=== PATIENT | female | born 2000 | race Caucasian/White ===

== ENCOUNTER 2020-01-03 12:01 | Emergency (ER) | payer SELFPAY ==
[2020-01-03 12:02] VITALS: BMI 33.3
[2020-01-03 12:06] VITALS: BP 132/73; PULSE 71; RESP 16; TEMP 37.1; O2SAT 98
--- NOTE | 2020-01-03 12:35 | US_ITS ---
WS: [id number] ULTRASOUND PELVIS TECHNIQUE: Transabdominal and transvaginal. ULTRASOUND PELVIS TECHNIQUE: Transabdominal. CLINICAL INFORMATION: pelvic pain, IUD in place : No. COMPARISON: None. FINDINGS: Technically difficult examination. Uterus IUD appears in place Orientation: Anteverted. Size: 8.57 cm x 5.4 cm x 4.7 cm. Masses: None. Endometrium: Normal. Adnexa: Suspected ruptured hemorrhagic cyst left ovary measuring 1.3 x 1.1 cm Right ovary size: 3.7 cm x 1.8 cm x 2.0 cm. Right ovary volume: 6.9 ccm3. Left ovary size: 5.0 cm x 5.1 cm x 2.0 cm. Left ovary volume: 26.5 ccm3 Free fluid: Present Other findings: None. US/US pelvic with transvaginal IMPRESSION: 1. Technically difficult examination. 2. Suspected ruptured hemorrhagic cyst left ovary measuring 1.3 x 1.1 cm 3. IUD appears to be in normal position. 4. Normal vascularity to both ovaries. 5. Free fluid about the right and left ovary, bladder, and in the cul-de-sac. 6. Complex fluid in the cul-de-sac suspicious for small amount of blood produc ts. 7. Normal endometrium.
[2020-01-03 12:43] VITALS: BP 174/100; PULSE 106; RESP 18; O2SAT 98
[2020-01-03 12:52] LABS: Basophils % 0.5 %; Eosinophils # 0.3 10^3/uL (0.0-0.8); Eosinophils % 3.9 %; Hematocrit 39.8 % (37.0-47.0); Hemoglobin 12.9 g/dL (11.5-15.3); Lymphocytes # 2.5 10^3/uL (1.5-6.5); Lymphocytes % 28.7 %; Mean Corpuscular HGB Conc 32.4 g/dL (30.0-36.0); Mean Corpuscular Hemoglobin 27.3 pg (28.0-34.0); Mean Corpuscular Volume 84.1 fL (81-99); Mean Platelet Volume 10.3 fL (7.4-10.4); Monocytes # 0.4 10^3/uL (0.2-0.9); Neutrophils # 5.32 10^3/uL (1.8-8.0); Neutrophils % 61.6 %; Nucleated Red Blood Cells % 0 %; Platelet Count 225 10^3/cmm (130-400); Red Blood Count 4.73 10^6/uL (4.1-5.3); Red Cell Distribution Width 13.5 % (12.1-15.1); White Blood Count 8.6 10^3/uL (4.5-13.0)
[2020-01-03 12:53] VITALS: RESP 17; O2SAT 100
[2020-01-03] MEDS: morphine 4 mg/mL SDV 1 mL IVP ×2 (12:53→14:21)
[2020-01-03] MEDS: ondansetron 2 mg/ML SDV 2 mL 4 MG IVP (12:53)
[2020-01-03] MEDS: ketorolac 30 mg/mL INJ 15 MG IVP (12:53)
[2020-01-03 13:01] LABS: Add Urine Microscopic? YES; Bilirubin Urine Neg (NEGATIVE); Blood Urine Neg (Negative); Glucose Urine UA Norm (Normal); Ketones Urine Negative (Negative); Leukocyte Esterase Urine Trace (Negative); Nitrate Urine Negative (Negative); Protein Urine Neg (Negative); Specific Gravity, Urine 1.005 (1.005-1.030); Urine Appearance Clear (CLEAR); Urine Color Straw (Yellow); Urobilinogen Urine Norm (Negative)
[2020-01-03 13:06] LABS: HCG, Serum Qual Negative (Negative)
[2020-01-03 13:07] LABS: Alanine Aminotransferase 16 U/L (0-33); Albumin Level 4.5 g/dL (3.5-5.2); Alkaline Phosphatase 70 IU/L (35-105); Anion Gap 12.6 (5-19); Aspartate Amino Transferase 19 U/L (0-32); Blood Urea Nitrogen 5 mg/dL (6-20); Calcium 8.9 mg/dL (8.5-10.5); Carbon Dioxide 24 mmol/L (22-29); Chloride 106 mmol/L (98-107); Globulin 2.3 g/dL (1.3-4.6); Glomerular Filtration Rate 106.7 mL/min (90-130); Glucose 96 mg/dL (65-115); Osmolality Calculated 284 mOsm/kg (285-295); Potassium 3.6 mmol/L (3.5-5.1); Sodium 139 mmol/L (136-145); Total Bilirubin 0.4 mg/dL (0.15-1.2); Total Protein 6.8 g/dL (6.6-8.7)
[2020-01-03 13:09] LABS: Bacteria Urine TRACE; Mucus Urine TRACE; Squamous Epithelial Cell Urine 0-4 (0-5); WBC Urine 0-4 /hpf (0-5)
[2020-01-03 13:10] LABS: Add Urine Culture? No
--- NOTE | 2020-01-03 13:50 | ED_ITS ---
HPI - Abdominal Pain General: Chief Complaint: Abdominal Pain Stated Complaint: ABD PAIN Time Seen by Provider: 01/03/20 12:17 History of Present Illness: HPI narrative: This is a 19 year old female presenting with abrupt onset of pelvic and abdominal pain at about 10 am. She had laid down in bed with her daughter who is sick with a fever - and started having severe pain that felt like labor. She was most comfortable on her hands and knees - worse with any movement. She has a merena IUD in place - has had it for a few years. She says that she has had two miscarriages with the merena in place. Otherwise she has not had a period in about a year. She doesn't have a doctor currently. She has noted tenderness in her breasts and some clear discharge from her nipples - she took several home tests that were neg. She has had 2 children and had complications with her first - pre- eclampsia and then afterwards had swelling in her uterus. No urinary symptoms, no diarrhea or vomiting, no vaginal discharge. MD elicited complaint: abdominal pain Pertinent past history: none Onset (ago): hour(s) (2) Radiation: suprapubic Associated Symptoms: Denies chills, fever(s), nausea and vomiting Review of Systems General: Reports: 10 or more systems reviewed and unremarkable except in HPI and below Const: Denies: fever(s), chills, fatigue or malaise Eyes: Denies: change in vision ENMT: Denies: odynophagia Card: Denies: chest pain or swelling of feet/ankles Resp: Denies: dyspnea, productive cough or non-productive cough GI: Reports: abdominal pain; Denies: nausea or vomiting : Denies: flank pain or difficulty voiding Musc: Denies: neck pain or back pain Skin/Breast: Reports: breast tenderness and nipple discharge; Denies: rash Neuro: Denies: headache(s), numbness in extremities or weakness in extremities Alexis/Lymph: Denies: easy bruising or easy bleeding [facility] ED PFSH: Social History (Updated 01/03/20 @ 12:07 by Nicole Perry RN) Smoking and tobacco status: never smoked Physical Exam Const: COMMON NORMALS: patient oriented x3, no limitations and alert GENERAL APPEARANCE: cooperative and in distress HENMT: HEAD & SCALP: normal to inspection FACE & SINUS: normal facial exam Eye: GENERAL EYE: appearance normal, both eyes and all related structures Neck/C-Spine: COMMON NORMALS: supple, no meningeal signs and no JVD Chest: COMMONS NORMALS: normal inspection of the chest Resp: COMMON NORMALS: normal respiratory effort, No use of accessory muscles and clear to auscultation bilaterally AUSCULTATION: clear to auscultation bilaterally Cardio: COMMON NORMALS: no JVD, regular rate, regular rhythm and No murmurs present (Cardio) RATE: regular rate RHYTHM: regular rhythm GI: COMMON NORMALS: Normal to inspection, nondistended, normoactive bowel sounds present, Soft to palpation and non-tender INSPECTION: Yes normal to inspection AUSCULTATION: Yes normoactive bowel sounds PALPATION: Yes Soft to palpation Back/Pelvis: COMMON NORMALS: thoracic and lumbar spine normal to inspection Extremity: COMMON NORMALS: normal to inspection Neuro: COMMON NORMALS: patient oriented x3, moves all extremities, no focal motor deficits and no sensory deficits noted SENSORIUM/ORIENTATION: Yes alert MENINGEAL SIGNS: Yes no meningeal signs Psych: COMMON NORMALS: mental status grossly normal, cooperative and normal affect Skin: COMMON NORMALS: no rashes or lesions noted and turgor normal GENERAL SKIN EXAM: no rashes or lesions noted and turgor normal Course ED course: Source of symptoms appears to be a hemorrhagic cyst. Patient also told me that she had just learned that someone she had sex with 4 months ago is rumored to have HIV and she would like to be tested. Also for hepatatis. She was given OB follow up and pain meds for home. Vital Signs: Vital signs: Vital Signs Temperature 98.7 F 01/03/20 12:06 Pulse Rate 68 01/03/20 15:25 Respiratory Rate 18 01/03/20 15:25 Blood Pressure 131/84 01/03/20 15:25 Pulse Oximetry 98 01/03/20 15:25 MDM - Abdominal Pain Lab Data: Labs: Lab Results 01/03/20 01/03/20 01/03/20 Range/Units 12:40 12:46 12:46 WBC 8.6 (4.5-13.0) 10^3/ uL RBC 4.73 (4.1-5.3) 10^6/u L Hgb 12.9 (11.5-15.3) g/dL Hct 39.8 (37.0-47.0) % MCV 84.1 (81-99) fL MCH 27.3 L (28.0-34.0) pg MCHC 32.4 (30.0-36.0) g/dL RDW 13.5 (12.1-15.1) % Plt Count 225 (130-400) 10^3/c mm MPV 10.3 (7.4-10.4) fL Neut % (Auto) 61.6 % Lymph % (Auto) 28.7 % [place] % (Auto) 5.0 % Eos % (Auto) 3.9 % Baso % (Auto) 0.5 % Neut # (Auto) 5.32 (1.8-8.0) 10^3/u L Lymph # (Auto) 2.5 (1.5-6.5) 10^3/u L [place] # (Auto) 0.4 (0.2-0.9) 10^3/u L Eos # (Auto) 0.3 (0.0-0.8) 10^3/u L Baso # (Auto) 0.0 (0.0-0.1) 10^3/u L Nucleated RBC % (a uto) 0 % Nucleated RBCs # 0.0 /100WBC Sodium 139 (136-145) mmol/L Potassium 3.6 (3.5-5.1) mmol/L Chloride 106 (98-107) mmol/L Carbon Dioxide 24 (22-29) mmol/L Anion Gap 12.6 (5-19) BUN 5 L (6-20) mg/dL Creatinine 0.7 (0.5-0.9) mg/dL GFR Calculation 106.7 (90-130) mL/min Glucose 96 (65-115) mg/dL Calculated Osmolal ity 284 L (285-295) mOsm/k g Calcium 8.9 (8.5-10.5) mg/dL Total Bilirubin 0.4 (0.15-1.2) mg/dL AST 19 (0-32) U/L ALT 16 (0-33) U/L Alkaline Phosphata se 70 (35-105) IU/L Total Protein 6.8 (6.6-8.7) g/dL Albumin 4.5 (3.5-5.2) g/dL Globulin 2.3 (1.3-4.6) g/dL HCG, Qual (Negative) Urine Color Straw (Yellow) Urine Appearance Clear (CLEAR) Urine pH 7.0 (5-7) Ur Specific Gravit y 1.005 (1.005-1.030) Urine Protein Neg (Negative) Urine Glucose (UA) Norm (Normal) Urine Ketones Negative (Negative) Urine Blood Neg (Negative) Urine Nitrate Negative (Negative) Urine Bilirubin Neg (NEGATIVE) Urine Urobilinogen Norm (Negative) mg/dL Ur Leukocyte Linda ase Trace H (Negative) Urine RBC None (0-2) /hpf Urine WBC 0-4 H (0-5) /hpf Ur Squamous Epith Cells 0-4 H (0-5) Amorphous Sediment Not Reportable Urine Bacteria Trace (NONE) Urine Mucus Trace Hepatitis A IgM Ab (Nonreactive) Hep Bs Antigen (Nonreactive) Hep B Core IgM Ab (Nonreactive) Hepatitis C Antibo dy (Nonreactive) HIV 1&2 Ab & HIV 1 Ag (Non-Reactiv) HIV 1&2 Antibody (Non-Reactiv) 01/03/20 01/03/20 01/03/20 Range/Units 12:46 12:46 12:46 WBC (4.5-13.0) 10^3/ uL RBC (4.1-5.3) 10^6/u L Hgb (11.5-15.3) g/dL Hct (37.0-47.0) % MCV (81-99) fL MCH (28.0-34.0) pg MCHC (30.0-36.0) g/dL RDW (12.1-15.1) % Plt Count (130-400) 10^3/c mm MPV (7.4-10.4) fL Neut % (Auto) % Lymph % (Auto) % [place] % (Auto) % Eos % (Auto) % Baso % (Auto) % Neut # (Auto) (1.8-8.0) 10^3/u L Lymph # (Auto) (1.5-6.5) 10^3/u L [place] # (Auto) (0.2-0.9) 10^3/u L Eos # (Auto) (0.0-0.8) 10^3/u L Baso # (Auto) (0.0-0.1) 10^3/u L Nucleated RBC % (a uto) % Nucleated RBCs # /100WBC Sodium (136-145) mmol/L Potassium (3.5-5.1) mmol/L Chloride (98-107) mmol/L Carbon Dioxide (22-29) mmol/L Anion Gap (5-19) BUN (6-20) mg/dL Creatinine (0.5-0.9) mg/dL GFR Calculation (90-130) mL/min Glucose (65-115) mg/dL Calculated Osmolal ity (285-295) mOsm/k g Calcium (8.5-10.5) mg/dL Total Bilirubin (0.15-1.2) mg/dL AST (0-32) U/L ALT (0-33) U/L Alkaline Phosphata se (35-105) IU/L Total Protein (6.6-8.7) g/dL Albumin (3.5-5.2) g/dL Globulin (1.3-4.6) g/dL HCG, Qual Negative (Negative) Urine Color (Yellow) Urine Appearance (CLEAR) Urine pH (5-7) Ur Specific Gravit y (1.005-1.030) Urine Protein (Negative) Urine Glucose (UA) (Normal) Urine Ketones (Negative) Urine Blood (Negative) Urine Nitrate (Negative) Urine Bilirubin (NEGATIVE) Urine Urobilinogen (Negative) mg/dL Ur Leukocyte Linda ase (Negative) Urine RBC (0-2) /hpf Urine WBC (0-5) /hpf Ur Squamous Epith Cells (0-5) Amorphous Sediment Urine Bacteria (NONE) Urine Mucus Hepatitis A IgM Ab Non-reactive (Nonreactive) Hep Bs Antigen Non-reactive (Nonreactive) Hep B Core IgM Ab Non-reactive (Nonreactive) Hepatitis C Antibo dy Non-reactive (Nonreactive) HIV 1&2 Ab & HIV 1 Ag Non-reactive (Non-Reactiv) HIV 1&2 Antibody Non-reactive (Non-Reactiv) Discharge Plan Discharge Patient Disposition: Home, Self-Care Condition: Stable Prescriptions: New hydrocodone-acetaminophen 5-325 mg tablet 1 tab PO Q6H PRN (Reason: pain) Qty: 14 RF: 0 Changed ibuprofen 200 mg Tablet 600 mg PO PRN Qty: 0 RF: 0 Discontinued acetaminophen [Tylenol Extra Strength] 500 mg Tablet 1,500 mg PO PRN RF: 0 Discharge Orders: Discharge Order (Routine); Ordered 01/03/20 Ordered By: Rox Qureshi Referrals: Gogo Kiser MD [Family Provider] - Stevie Bass MD [Physician] - 2 weeks Discharge Diet: Usual diet Discharge Activity: Resume usual activity Patient Instructions: Ovarian Cyst (ED) Activity Restrictions/Additional Instructions: Expect to have significant pain for the next few days. Pain should improve gradually after that. Use the pain medication as needed. He can take 600 to 800 mg of ibuprofen every 6-8 hours as well. Follow-up with Dr. Bass or at the [facility] clinic in [place]. Return to the emergency department if fever, vomiting, worsening pain. Discharge Date/Time: 01/03/20 15:28 Coding Level of Care Code ED Helpdesk Analyst for Chg Fwd Exam Comprehensive
[2020-01-03 14:21] VITALS: RESP 17; O2SAT 99
[2020-01-03 14:47] VITALS: BP 129/85; PULSE 74; RESP 18; O2SAT 98
[2020-01-03 15:25] VITALS: BP 131/84; PULSE 68; RESP 18; O2SAT 98
[2020-01-03 15:42] LABS: HIV 1 & 2 Antibody Non-Reactive (Non-Reactiv); HIV 1 & 2 Antigen Non-Reactive (Non-Reactiv)
[2020-01-03 15:45] LABS: Hepatitis A Antibody IgM Non-Reactive (Nonreactive); Hepatitis B Core IgM Non-Reactive (Nonreactive); Hepatitis B Surface Antigen Non-Reactive (Nonreactive); Hepatitis C Virus Antibody Non-Reactive (Nonreactive)
== END 2020-01-03 15:28 | disposition home or self-care (01) ==
PROVIDERS: Emergency Provider Emergency Medicine; Family Provider Family Medicine
DX: R10.9 Unspecified abdominal pain (principal)
CPT/HCPCS: 12345; 36415; 76830; 76856; 80053; 80074; 81001; 81003; 84703; 85025; 87491; 87591; 87661; 87806; 96374; 96375; 96376; 99282; 99284; J1885; J2270; J2405

== ENCOUNTER 2022-01-04 18:23 | Emergency (ER) | payer SELFPAY ==
[2022-01-04 18:34] VITALS: BP 133/78; PULSE 78; RESP 16; TEMP 36.7; O2SAT 99
[2022-01-04 19:18] LABS: Basophils # 0.1 10^3/uL (0.0-0.1); Basophils % 0.6 %; Eosinophils # 0.6 10^3/uL (0.0-0.8); Eosinophils % 7.2 %; Hematocrit 36.9 % (37.0-47.0); Hemoglobin 12.8 g/dL (11.5-15.3); Lymphocytes # 2.8 10^3/uL (0.8-4.8); Lymphocytes % 31.8 %; Mean Corpuscular HGB Conc 34.7 g/dL (30.0-36.0); Mean Corpuscular Hemoglobin 28.6 pg (28.0-34.0); Mean Corpuscular Volume 82.6 fl (81-99); Mean Platelet Volume 10.9 fL (7.4-10.4); Monocytes # 0.5 10^3/uL (0.2-0.9); Monocytes % 6.1 %; Neutrophils # 4.78 10^3/uL (1.8-7.7); Nucleated Red Blood Cells % 0 %; Platelet Count 199 10^3/cmm (130-400); Red Blood Count 4.47 10^6/uL (4.1-5.3); Red Cell Distribution Width 12.8 % (12.1-15.1); White Blood Count 8.9 10^3/uL (4.0-10.0)
[2022-01-04 19:41] LABS: HCG Quantitative 19.16 mIU/mL
[2022-01-04 19:52] LABS: Alanine Aminotransferase 8 U/L (0-33); Albumin Level 4.6 g/dL (3.5-5.2); Alkaline Phosphatase 52 IU/L (35-105); Aspartate Amino Transferase 13 U/L (0-32); Blood Urea Nitrogen 10 mg/dL (6-20); Calcium 8.9 mg/dL (8.5-10.5); Carbon Dioxide 26 mmol/L (22-29); Chloride 105 mmol/L (98-107); Globulin 2.4 g/dL (1.3-4.6); Glomerular Filtration Rate 89.7 mL/min (90-130); Glucose 91 mg/dL (65-115); Osmolality Calculated 293 mOsm/kg (285-295); Sodium 142 mmol/L (136-145); Total Bilirubin 0.2 mg/dL (0.15-1.2)
--- NOTE | 2022-01-04 21:05 | USR_ITS ---
PROCEDURE INFORMATION: Exam: US , Transvaginal Exam date and time: 01/04/2022 9:38 PM Age: 21 years old Clinical indication: Lmp or gestational age (in weeks): 11/24/2021; Other: Vaginal bleeding; Additional info: Vag bleeding TECHNIQUE: Imaging protocol: Real-time transvaginal obstetrical ultrasound of the maternal pelvis with image documentation. Transvaginal imaging was used for better evaluation of the fetus, adnexa, and/or cervix. COMPARISON: US pelvic with transvaginal 01/03/2020 12:59 PM FINDINGS: Gestation: No evidence for an intrauterine gestation. heart rate: See under Gestation . Placenta: See under Gestation . Amniotic fluid: See under Gestation . BIOMETRY: Gestational age (AUA): See under Gestation . MATERNAL: Uterus: The intrauterine device has been removed. The uterus is unremarkable. The uterus measures 7.0 x 5.9 x 7.0 cm. The endometrium is unremarkable. Endometrium measures 4.2 mm. Cervix: The cervix is unremarkable. There is no shortening or effacement. The cervix measures 3.6 cm using a transvaginal measurement. Right ovary/adnexa: Multiple subcentimeter follicles in the right ovary. The right ovary measures 3.5 x 1.6 x 2.6 cm. Normal arterial and venous waveforms on Doppler imaging in the right ovary. Left ovary/adnexa: Multiple subcentimeter follicles in the left ovary. The left ovary measures 4.0 x 2.0 x 2.3 cm. Normal arterial and venous waveforms on Doppler imaging in the left ovary. Intraperitoneal space: Small amount of free fluid superior to the fundus of the uterus. US/US OB <=14 wk fetus w transvag IMPRESSION: 1. No evidence for an intrauterine gestation. Findings may be secondary to a prior spontaneous . Recommend clinical correlation. Follow-up ultrasound may be obtained in 1-2 weeks is clinically indicated. 2. The intrauterine device has been removed. 3. Small amount of free fluid superior to the fundus of the uterus. 4. Incidental/nonacute findings are listed in the report.
--- NOTE | 2022-01-04 21:38 | W.ED.GENADLT ---
HPI - General Adult General: Chief complaint: Vaginal Bleeding Stated complaint: abd pain, vaginal bleeding, Time Seen by Provider: 01/04/22 21:04 History of Present Illness: Patient is a 21-year-old female G3, P2 presenting to the emergency room with concerns of vaginal bleeding x1 day. Patient tells me that she had sex earlier today and shortly after patient began to have some vaginal spotting follow-up passage of clots. Patient did not reports pelvic tightness. Patient denies any regular contractions. Patient tells me that 3 days ago she found out that she was . She is 6 weeks by LMP. Patient denies any nausea/vomiting, diarrhea melena or hematochezia. Patient denies any chest pain shortness breath or palpitation or lightheadedness. Patient has not yet established care with an OB provider. Onset: 2 hrs ago Duration:2 hrs Location:home Severity:moderate Associated symptoms: Deny chest pain, dyspnea, nausea, rash, palpitations or vomiting Review of Systems Const: Denies: fever(s) or chills Eyes: Denies: change in vision ENMT: Denies: mouth pain Card: Denies: chest pain or palpitations Resp: Denies: dyspnea or non-productive cough GI: Denies: abdominal pain, nausea, vomiting or diarrhea : Reports: pelvic pain and other (+vaginal bleeding); Denies: dysuria Musc: Denies: extremity pain Skin/Breast: Denies: rash or new lesions Neuro: Denies: weakness in extremities Psych: Reports: other (Normal mood) Alexis/Lymph: Denies: easy bruising PFS ED PFSH: Medical History Preeclampsia Social History Smoking and tobacco status: never smoked Alcohol intake: never Substance/Drug Use: never Physical Exam Const: COMMON NORMALS: alert HENMT: COMMON NORMALS: atraumatic HEAD & SCALP: atraumatic MOUTH: moist mucous membranes not abnormal Eye: COMMON NORMALS: EOMs intact bilaterally and conjunctivae normal CONJUNCTIVA: Yes conjunctivae normal Neck/C-Spine: COMMON NORMALS: full ROM and supple Resp: COMMON NORMALS: normal respiratory effort and clear to auscultation bilaterally AUSCULTATION: clear to auscultation bilaterally Cardio: COMMON NORMALS: regular rate RATE: regular rate GI: COMMON NORMALS: Soft to palpation and non-tender PALPATION: Yes Soft to palpation Extremity: COMMON NORMALS: full ROM Neuro: SENSORIUM/ORIENTATION: Yes alert MOTOR EXAM: No Abnormal motor strength present and Other motor observations present (no focal motor deficits) Psych: COMMON NORMALS: speech normal SPEECH: Yes normal speech MOOD & AFFECT: Yes euthymic mood Course Vital Signs: Vital signs: Vital Signs Temperature 98.1 F 01/04/22 21:56 Pulse Rate 75 01/04/22 21:56 Respiratory Rate 16 01/04/22 21:56 Blood Pressure 135/74 01/04/22 21:56 Pulse Oximetry 99 01/04/22 21:56 MDM - General Adult Medical Decision Making Patient is a 21-year-old female G3, P2 presenting to the emergency room with concerns of vaginal bleeding. test +3 days ago. Hemoglobin of 12.8 today. Patient is Rh+. Present time, we are currently waiting for ultrasound. At 10:11pm, ultrasound is currently pending. Patient however elects to leave at this time. My nurse and I have explained the risk of leaving prior to imaging resulting however patient this time is still elects to do so. Patient refuses to sign the AMA form at this time. Lab Data : 01/04/22 19:00 01/04/22 19:00 Laboratory Results WBC 8.9 10^3/uL (4.0-10.0) 01/04/22 19:00 RBC 4.47 10^6/uL (4.1-5.3) 01/04/22 19:00 Hgb 12.8 g/dL (11.5-15.3) 01/04/22 19:00 Hct 36.9 % (37.0-47.0) L 01/04/22 19:00 MCV 82.6 fl (81-99) 01/04/22 19:00 MCH 28.6 pg (28.0-34.0) 01/04/22 19:00 MCHC 34.7 g/dL (30.0-36.0) 01/04/22 19:00 RDW 12.8 % (12.1-15.1) 01/04/22 19:00 Plt Count 199 10^3/cmm (130-400) 01/04/22 19:00 MPV 10.9 fL (7.4-10.4) H 01/04/22 19:00 Neut % (Auto) 54.0 % 01/04/22 19:00 Lymph % (Auto) 31.8 % 01/04/22 19:00 [place] % (Auto) 6.1 % 01/04/22 19:00 Eos % (Auto) 7.2 % 01/04/22 19:00 Baso % (Auto) 0.6 % 01/04/22 19:00 Neut # (Auto) 4.78 10^3/uL (1.8-7.7) 01/04/22 19:00 Lymph # (Auto) 2.8 10^3/uL (0.8-4.8) 01/04/22 19:00 [place] # (Auto) 0.5 10^3/uL (0.2-0.9) 01/04/22 19:00 Eos # (Auto) 0.6 10^3/uL (0.0-0.8) 01/04/22 19:00 Baso # (Auto) 0.1 10^3/uL (0.0-0.1) 01/04/22 19:00 Nucleated RBC % (auto) 0 % 01/04/22 19:00 Nucleated RBCs # 0.0 /100WBC 01/04/22 19:00 Sodium 142 mmol/L (136-145) 01/04/22 19:00 Potassium 4.0 mmol/L (3.5-5.1) 01/04/22 19:00 Chloride 105 mmol/L (98-107) 01/04/22 19:00 Carbon Dioxide 26 mmol/L (22-29) 01/04/22 19:00 Anion Gap 15.0 (5-19) 01/04/22 19:00 BUN 10 mg/dL (6-20) 01/04/22 19:00 Creatinine 0.8 mg/dL (0.5-0.9) 01/04/22 19:00 GFR Calculation 89.7 mL/min (90-130) L 01/04/22 19:00 Glucose 91 mg/dL (65-115) 01/04/22 19:00 Calculated Osmolality 293 mOsm/kg (285-295) 01/04/22 19:00 Calcium 8.9 mg/dL (8.5-10.5) 01/04/22 19:00 Total Bilirubin 0.2 mg/dL (0.15-1.2) 01/04/22 19:00 AST 13 U/L (0-32) 01/04/22 19:00 ALT 8 U/L (0-33) 01/04/22 19:00 Alkaline Phosphatase 52 IU/L (35-105) 01/04/22 19:00 Total Protein 7.0 g/dL (6.6-8.7) 01/04/22 19:00 Albumin 4.6 g/dL (3.5-5.2) 01/04/22 19:00 Globulin 2.4 g/dL (1.3-4.6) 01/04/22 19:00 Ser , Semi-Qnt 19.16 mIU/mL 01/04/22 19:00 Blood Type O Positive 01/04/22 19:00 Rho(D) Type Positive 01/04/22 19:00 Discharge Plan Discharge Prescriptions: No Action hydrocodone-acetaminophen 5-325 mg tablet 1 tab PO Q6H PRN (Reason: pain) Qty: 14 0RF ibuprofen 200 mg Tablet 600 mg PO PRN Qty: 0 0RF Coding Level of Care Code ED Grocery Store Associate for Chg Fwd Exam Comprehensive
--- NOTE | 2022-01-04 21:54 | PC.NURSE ---
Chaperoned account technician during pelvic ultrasound.
[2022-01-04 21:56] VITALS: BP 135/74; PULSE 75; RESP 16; TEMP 36.7; O2SAT 99
--- NOTE | 2022-01-04 22:12 | PC.NURSE ---
PT stated that she wants to leave. She was asked to stay for her results. PT was educated on the risk of leaving without the rest of her results. PT stated that she still wanted to leave. PT was asked to sign an ama paper but refused. Pt ambulated out of ED.
[2022-01-04 22:15] VITALS: BP 135/74; PULSE 75; RESP 16; TEMP 36.7; O2SAT 99
[2022-01-04 22:20] LABS: Add Urine Microscopic? YES; Bilirubin Urine 1+ (Negative); Blood Urine 3+ (Negative); Glucose Urine UA Norm (Normal); Ketones Urine Negative (Negative); Leukocyte Esterase Urine Negative (Negative); Nitrate Urine Negative (Negative); Protein Urine Neg (Negative); Urine Appearance Hazy (CLEAR); Urine Color Yellow (Yellow); Urobilinogen Urine Norm (Negative); pH Urine 6 (5-7)
[2022-01-04 22:21] LABS: Bacteria Urine TRACE /hpf; Mucus Urine 3+ /hpf
[2022-01-04 22:23] LABS: Add Urine Culture? No; RBC Urine 80-100 /hpf (0-2)
== END 2022-01-04 22:16 | disposition left against medical advice (07) ==
PROVIDERS: Physician Assistant; Emergency Provider Emergency Medicine
DX: O46.90 Antepartum hemorrhage, unspecified, unspecified trimester (principal); Z3A.00 Weeks of gestation of pregnancy not specified; Z53.21 Procedure and treatment not carried out due to patient leaving prior to being seen by health care provider
CPT/HCPCS: 36415; 76801; 76817; 80053; 81001; 84702; 85025; 86900; 99284

== ENCOUNTER 2022-01-05 13:21 | Emergency (ER) | payer SELFPAY ==
--- NOTE | 2022-01-05 13:35 | W.ED.GENADLT ---
HPI - General Adult General: Chief complaint: Vaginal Bleeding Stated complaint: vaginal bleeding Time Seen by Provider: 01/05/22 13:34 History of Present Illness: Patient is a 21-year-old female G3, P2 presents who presented initially yesterday night for concerns of vaginal spotting in the setting of 6 weeks by LMP. Patient left against medical vice yesterday night and since then has had significant passage of clots and heavy vaginal bleeding. Patient represented to the emergency room for concerns of vaginal bleeding. Patient denies any fever/chills, nausea/vomiting, abdominal complaints, diarrhea melena hematochezia. Patient denies any new vaginal discharge or urinary complaints. Yesterday, patient was found to have no evidence of intra uterine gestation on ultrasound. Onset:2 days ago Duration:2 days Location:home Severity:moderate Associated symptoms: Deny chest pain, dyspnea, nausea, rash, palpitations or vomiting Review of Systems Const: Denies: fever(s) or chills Eyes: Denies: change in vision ENMT: Denies: mouth pain Card: Denies: chest pain or palpitations Resp: Denies: dyspnea or non-productive cough GI: Denies: abdominal pain, nausea, vomiting or diarrhea : Reports: other (+vaginal bleeding, cramps, and passage of clots); Denies: dysuria Musc: Denies: extremity pain Skin/Breast: Denies: rash or new lesions Neuro: Denies: weakness in extremities Psych: Reports: other (Normal mood) Alexis/Lymph: Denies: easy bruising PFSH ED PFSH: Medical History Preeclampsia Social History Smoking and tobacco status: never smoked Alcohol intake: never Physical Exam Const: COMMON NORMALS: alert HENMT: COMMON NORMALS: atraumatic HEAD & SCALP: atraumatic MOUTH: moist mucous membranes not abnormal Eye: COMMON NORMALS: EOMs intact bilaterally and conjunctivae normal CONJUNCTIVA: Yes conjunctivae normal Neck/C-Spine: COMMON NORMALS: full ROM and supple Resp: COMMON NORMALS: normal respiratory effort and clear to auscultation bilaterally AUSCULTATION: clear to auscultation bilaterally Cardio: COMMON NORMALS: regular rate RATE: regular rate GI: COMMON NORMALS: Soft to palpation and non-tender PALPATION: Yes Soft to palpation : OTHER: Exam supervised by nurse Gibran tech: Mild old blood in the vaginal vault. Os appears to be open, no clear retained products visualized on exam, no signs of active extravasation or bleeding Extremity: COMMON NORMALS: full ROM Neuro: SENSORIUM/ORIENTATION: Yes alert MOTOR EXAM: No Abnormal motor strength present and Other motor observations present (no focal motor deficits) Psych: COMMON NORMALS: speech normal SPEECH: Yes normal speech MOOD & AFFECT: Yes euthymic mood Course Vital Signs: Vital signs: Vital Signs Temperature 98 F 01/05/22 13:36 Pulse Rate 69 01/05/22 13:36 Respiratory Rate 18 01/05/22 13:36 Blood Pressure 138/96 01/05/22 13:36 Pulse Oximetry 100 01/05/22 13:36 MDM - General Adult Medical Decision Making 21-year-old female G3, P2 6-week by LMP presenting to the emergency room with heavy vaginal bleeding after she left AMA yesterday in the emergency room. Yesterday she was not seen with an IUP with suspected spontaneous miscarriage. Hemoglobin appears to be stable today. Patient has no signs of active bleeding today. No signs of product that can be removed on pelvic exam. Os appears to be open. Patient has no signs of active bleeding at this time. Rh+ yesterday. I have given patient follow up with our counseling case manager to be seen by our outpatient OB for miscarriage. Patient aware of a call from our counseling case manager to schedule for appointment(s) and verbalizes understanding of the importance of following up. Rx: Tylenol PRN pain Disposition: Discharge. Patient counseled regarding diagnostic impression, treatment plan. Patient given ED strict return precautions to return for continuation, worsening, or development of new symptoms. Instructed to f/u w/ OB/PCP regarding symptoms today. Patient verbalized understanding. Lab Data : 01/05/22 13:45 01/05/22 13:45 Laboratory Results WBC 7.8 10^3/uL (4.0-10.0) 01/05/22 13:45 RBC 4.39 10^6/uL (4.1-5.3) 01/05/22 13:45 Hgb 12.6 g/dL (11.5-15.3) 01/05/22 13:45 Hct 37.8 % (37.0-47.0) 01/05/22 13:45 MCV 86.1 fl (81-99) 01/05/22 13:45 MCH 28.7 pg (28.0-34.0) 01/05/22 13:45 MCHC 33.3 g/dL (30.0-36.0) 01/05/22 13:45 RDW 12.6 % (12.1-15.1) 01/05/22 13:45 Plt Count 190 10^3/cmm (130-400) 01/05/22 13:45 MPV 11.3 fL (7.4-10.4) H 01/05/22 13:45 Neut % (Auto) 51.3 % 01/05/22 13:45 Lymph % (Auto) 35.6 % 01/05/22 13:45 [place] % (Auto) 5.9 % 01/05/22 13:45 Eos % (Auto) 6.3 % 01/05/22 13:45 Baso % (Auto) 0.6 % 01/05/22 13:45 Neut # (Auto) 4.02 10^3/uL (1.8-7.7) 01/05/22 13:45 Lymph # (Auto) 2.8 10^3/uL (0.8-4.8) 01/05/22 13:45 [place] # (Auto) 0.5 10^3/uL (0.2-0.9) 01/05/22 13:45 Eos # (Auto) 0.5 10^3/uL (0.0-0.8) 01/05/22 13:45 Baso # (Auto) 0.1 10^3/uL (0.0-0.1) 01/05/22 13:45 Nucleated RBC % (auto) 0 % 01/05/22 13:45 Nucleated RBCs # 0.0 /100WBC 01/05/22 13:45 Discharge Plan Discharge Patient Disposition: Home Clinical Impression: Abnormal vaginal bleeding, Miscarriage Condition: Stable Prescriptions: No Action No Known Home Medications 0RF Discharge Orders: Discharge ED (Routine); Ordered 01/05/22 Ordered By: Vinod Dalton Discharge Diet: Advance as tolerated Discharge Activity: Increase activity as tolerated Patient Instructions: Abnormal (Dysfunctional) Uterine Bleeding (ED) Activity Restrictions/Additional Instructions: Our counseling case manager will have you follow-up with OB provider in the next few days if you have ongoing vaginal bleeding. You would be expected to have a phone call with our counseling case manager who will put you on the schedule. You can expect a call from us in the next 2-3 days. If you don't hear from us, call us back in the emergency room at [phone]. Come back to the emergency room have any significant vaginal bleeding or any new external complaints. Stand Alone Forms: Work/School Release Coding Level of Care Code ED Gate Mortiser Operator for Chg Fwd Exam Comprehensive
[2022-01-05 13:36] VITALS: BP 138/96; PULSE 69; RESP 18; TEMP 36.6; O2SAT 100; BMI 22.6
[2022-01-05 14:02] LABS: Basophils # 0.1 10^3/uL (0.0-0.1); Basophils % 0.6 %; Eosinophils # 0.5 10^3/uL (0.0-0.8); Eosinophils % 6.3 %; Hematocrit 37.8 % (37.0-47.0); Hemoglobin 12.6 g/dL (11.5-15.3); Lymphocytes # 2.8 10^3/uL (0.8-4.8); Lymphocytes % 35.6 %; Mean Corpuscular HGB Conc 33.3 g/dL (30.0-36.0); Mean Corpuscular Hemoglobin 28.7 pg (28.0-34.0); Mean Corpuscular Volume 86.1 fl (81-99); Mean Platelet Volume 11.3 fL (7.4-10.4); Monocytes # 0.5 10^3/uL (0.2-0.9); Monocytes % 5.9 %; Neutrophils # 4.02 10^3/uL (1.8-7.7); Neutrophils % 51.3 %; Nucleated Red Blood Cells % 0 %; Platelet Count 190 10^3/cmm (130-400); Red Blood Count 4.39 10^6/uL (4.1-5.3); Red Cell Distribution Width 12.6 % (12.1-15.1); White Blood Count 7.8 10^3/uL (4.0-10.0)
--- NOTE | 2022-01-05 14:21 | PC.PHAR ---
pt states she takes no rx or otc medications-
[2022-01-05 14:46] LABS: HCG Quantitative 12.46 mIU/mL
[2022-01-05 14:47] LABS: Alanine Aminotransferase 7 U/L (0-33); Albumin Level 4.2 g/dL (3.5-5.2); Alkaline Phosphatase 46 IU/L (35-105); Anion Gap 15.7 (5-19); Aspartate Amino Transferase 12 U/L (0-32); Blood Urea Nitrogen 9 mg/dL (6-20); Calcium 8.7 mg/dL (8.5-10.5); Carbon Dioxide 22 mmol/L (22-29); Chloride 108 mmol/L (98-107); Globulin 2.3 g/dL (1.3-4.6); Glomerular Filtration Rate 89.7 mL/min (90-130); Glucose 86 mg/dL (65-115); Lipase 20 U/L (13-60); Osmolality Calculated 292 mOsm/kg (285-295); Potassium 3.7 mmol/L (3.5-5.1); Sodium 142 mmol/L (136-145); Total Bilirubin 0.4 mg/dL (0.15-1.2); Total Protein 6.5 g/dL (6.6-8.7)
--- NOTE | 2022-01-06 08:50 | DCPLANNER ---
Addendum entered by Anayeli Michelle 01/14/22 12:35: customer care manager received the following message from [facility] regarding follow up appointment: I went over this referral with Dr Gonzales and she asked that I contact patient and check on her to see how she is doing, if she wants an appointment, if she is having fertility issues and wants to be seen for that. I spoke with patient and she reports she is feeling fine. She denies spotting, bleeding, cramping or any other issues at this time. She reports she passed several large clots and some pieces of tissue between her ER visits. I encouraged patient to call us if in the future she needs to schedule an appointment, she voices understanding//JS Original Note: customer care manager had message to schedule a follow up appointment for patient with [facility]. customer care manager sent patients information to the front office staff at [facility]. Patients information will be printed and reviewed. Clinic will call patient with appointment information.
== END 2022-01-05 15:39 | disposition home or self-care (01) ==
PROVIDERS: Emergency Provider Emergency Medicine
DX: O03.9 Complete or unspecified spontaneous abortion without complication (principal)
CPT/HCPCS: 80053; 83690; 84702; 85025; 99283